=== PATIENT | male | born 1950 | race Caucasian/White ===

== ENCOUNTER 2020-02-07 20:23 | Emergency (ER) | payer MEDICARE, BC ==
[2020-02-07] MEDS: Lidocaine 1% with EPINEPHrine 1:100,000 20 ML MDV ONE (20:50)
[2020-02-07] MEDS: Lidocaine 1% with EPINEPHrine 1:100,000 20 ML MDV INJECT ONE (20:50)
[2020-02-07] MEDS: Diphtheria,Pertussis(Acell),Tetanus Vaccine 0.5 ML SDV IM ONE (21:00)
[2020-02-07] MEDS ORDERED: Bacitracin/Neomycin/Polymyxin B Oint 0.9 GM U/D Packet ONE (21:02)
[2020-02-07] MEDS: Bacitracin/Neomycin/Polymyxin B Oint 0.9 GM U/D Packet TOP ONE (21:07)
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
== END 2020-02-07 21:20 | disposition home or self-care (01) ==
LOC: KA.ED 20:23
DX: S01.112A Laceration without foreign body of left eyelid and periocular area, initial encounter (principal); E78.00 Pure hypercholesterolemia, unspecified; Z23 Encounter for immunization; Z79.899 Other long term (current) drug therapy; V86.59XA Driver of other special all-terrain or other off-road motor vehicle injured in nontraffic accident, initial encounter
CPT/HCPCS: 12011; 90471; 90715; 99282-25; 99283